=== PATIENT | male | born 1965 | race Two or more races ===

== ENCOUNTER 2019-04-07 14:14 | Inpatient (IN) | payer OTHER ==
[~2019-04-07] VITALS: Ht 165.1 cm; Wt 70.3 kg
[2019-04-07] MEDS ORDERED: MORPHINE SULFATE 4 MG/ML CPJ (NOT FOR IM USE) IV STA (15:12)
[2019-04-07] MEDS ORDERED: ONDANSETRON HCL 4MG/2ML INJ IV STA (15:12)
[2019-04-07 15:40] LABS: HEMATOCRIT. 42.5 % (42.0-52.0); MEAN CORPUSCULAR HEMOGLOBIN 26.6 pg (28.0-32.0); MEAN CORPUSCULAR VOLUME 80.5 fL (80.0-94.0); MEAN PLATELET VOLUME 8.9 fl (7.4-10.4); PLATELET 232 x1000/uL (130-400); RED BLOOD CELL COUNT 5.27 mill/uL (4.7-6.1)
[2019-04-07 15:46] LABS: CHLORIDE 106 mEq/L (98-107)
[2019-04-07 15:47] LABS: PROTHROMBIN TIME 10.7 sec (9.6-11.0)
[2019-04-07] MEDS ORDERED: ONDANSETRON HCL 4MG/2ML INJ IV ONE (16:15)
[2019-04-07 18:02] LABS: PLATELET ESTIMATE NORMAL
[2019-04-07 19:29] LABS: CLARITY URINE CLOUDY (CLEAR); COLOR URINE DARK YELLOW (YELLOW); KETONES URINE TRACE (NEGATIVE); LEUKOCYTE ESTERASE URINE NEGATIVE (NEGATIVE); NITRITE URINE NEGATIVE (NEGATIVE); OCCULT BLOOD URINE NEGATIVE (NEGATIVE); PH URINE 5.5 (4.5-8.0); PROTEIN URINE 2+ (NEGATIVE); SPECIFIC GRAVITY URINE 1.036 (1.005-1.030); UROBILINOGEN URINE 0.2 E.U./dL (0.2-1.0)
[2019-04-07] MEDS ORDERED: SODIUM CHLORIDE 0.45% 1,000 ML IV SCH (19:29)
[2019-04-07] MEDS ORDERED: ACETAMINOPHEN 325MG TABLET PO PRN (19:30)
[2019-04-07] MEDS ORDERED: DIPHENHYDRAMINE 50MG/ML VIAL IV PRN (19:30)
[2019-04-07] MEDS ORDERED: ONDANSETRON HCL 4MG/2ML INJ IV PRN (19:30)
[2019-04-07] MEDS ORDERED: CLONIDINE 0.1MG TABLET PO PRN (19:30)
[2019-04-07] MEDS ORDERED: LORAZEPAM 2MG/ML CPJ IV PRN (19:30)
[2019-04-07] MEDS ORDERED: DOCUSATE SODIUM 100MG CAPSULE PO PRN (19:30)
[2019-04-07] MEDS ORDERED: IPRATROPIUM/ALBUTEROL 0.5-3(2.5)MG/3ML NEB NEB PRN (19:30)
[2019-04-07] MEDS ORDERED: HYDROCODONE/ACETAMINOPHEN 5/325MG TABLET PO PRN (19:30)
[2019-04-07] MEDS ORDERED: MAGNESIUM/ALUMINUM HYDROXIDE/SIMETHICONE 30ML UDC PO PRN (19:30)
[2019-04-07 20:38] LABS: CHLORIDE 107 mEq/L (98-107)
[2019-04-07] MEDS ORDERED: MORPHINE SULFATE 2 MG/ML CPJ (NOT FOR IM USE) IV PRN (21:31)
[2019-04-07] MEDS ORDERED: NA PHOS,M-B/NA PHOS,DI-BA ENEMA 118ML PR PRN (22:00)
[2019-04-08] MEDS ORDERED: METRONIDAZOLE 500 MG PREMIX 100 ML IV SCH ×3 (01:00→10:00)
[2019-04-08] MEDS ORDERED: ENOXAPARIN 40MG/0.4ML SYR SUBCUT SCH ×2 (01:00→23:00)
[2019-04-08] MEDS ORDERED: LEVOFLOXACIN 500MG PREMIX 100 ML IV SCH ×3 (01:00→23:00)
[2019-04-08] MEDS ORDERED: ASPIRIN 81MG TABLET PO ONE (04:30)
[2019-04-08 05:55] VITALS: BP 122/76
[2019-04-08 05:56] VITALS: BP 122/76
[2019-04-08] MEDS ORDERED: METF500S7 PO (06:28)
[2019-04-08] MEDS ORDERED: MESA800T PO (06:28)
[2019-04-08] MEDS ORDERED: ERGO400C PO (06:28)
[2019-04-08] MEDS ORDERED: ATOR20TA65 PO (06:28)
[2019-04-08] MEDS ORDERED: CALC-1042 PO (06:28)
[2019-04-08] MEDS ORDERED: DEXTROSE 50% WATER 50ML SYRINGE IV PRN (07:00)
[2019-04-08] MEDS ORDERED: BLOOD SUGAR DIAGNOSTIC STRIP TEST SCH (07:40)
[2019-04-08] MEDS ORDERED: INSULIN LISPRO 100 UNITS/ML SUBCUT SCH (08:10)
[2019-04-08 08:38] LABS: BASOPHILS % 0.6 % (0.0-2.0); EOSINOPHILS % 0.7 % (0.0-5.0); LYMPHOCYTES % 10.7 % (20.0-50.0); MEAN CORPUSCULAR HEMOGLOBIN 27.2 pg (28.0-32.0); MEAN CORPUSCULAR VOLUME 79.7 fL (80.0-94.0); MEAN PLATELET VOLUME 9.2 fl (7.4-10.4); MONOCYTES % 9.9 % (2.0-8.0); NEUTROPHILS % 78.1 % (40.0-76.0); PLATELET 195 x1000/uL (130-400); RED BLOOD CELL COUNT 4.76 mill/uL (4.7-6.1)
[2019-04-08 09:24] LABS: CHLORIDE 107 mEq/L (98-107)
[2019-04-08 09:37] LABS: HDL CHOLESTEROL 42 mg/dL (40-59); LDL CHOLESTEROL 39 mg/dL (5-100)
[2019-04-08 11:35] VITALS: BP 114/70
== END 2019-04-08 12:21 | disposition home or self-care (01) | DRG 247 ==
LOC: ER 14:14 → ENRESERV 04-08 03:07 → 7WST 04-08 05:07
PROVIDERS: ADMIT Internal Medicine; ATTEND Internal Medicine
DX: K56.609 Unspecified intestinal obstruction, unspecified as to partial versus complete obstruction (principal); R65.10 Systemic inflammatory response syndrome (SIRS) of non-infectious origin without acute organ dysfunction; E11.9 Type 2 diabetes mellitus without complications; E86.0 Dehydration; I10 Essential (primary) hypertension; Z93.2 Ileostomy status; Z93.3 Colostomy status; Z90.49 Acquired absence of other specified parts of digestive tract
CPT/HCPCS: 36415; 74176; 80048; 80053; 80061; 81003; 82962; 84484; 85025; 93005; 99291; J1650; J1815; J1956; J2270; J2405; J3490